=== PATIENT | female | born 1995 | race Caucasian/White ===

== ENCOUNTER 2018-04-08 13:53 | Observation (INO) | payer MEDICAID ==
[2018-04-08 14:56] VITALS: BP 127/79; PULSE 110
== END 2018-04-08 15:10 | disposition home or self-care (01) ==
LOC: MED SURG 13:53
PROVIDERS: ADMIT Family Medicine; ATTEND Family Medicine
DX: Z34.83 Encounter for supervision of other normal pregnancy, third trimester (principal)
CPT/HCPCS: 59025; G0378

== ENCOUNTER 2018-04-11 08:14 | Inpatient (IN) | payer MEDICAID ==
[2018-04-11] MEDS ORDERED: BRETHINE 1 MG/ML SQ PRN (18:45)
[2018-04-11 20:00] LABS: BASOPHIL % 0.2 % (0.0-0.4); Basophil (Absolute #) 0.02 (0-0.4); Eosinophil % 0.9 % (0.00-5.0); Granulocyte Absolute (ANC) 8.04 (1.4-6.9); Granulocytes % 69.4 % (36.0-66.0); Hematocrit 33.8 % (35-47); Lymphocyte (Absolute #) 2.65 (1.0-4.6); Lymphocytes % 22.9 % (24.0-44.0); Mean Corpuscular Hgb Concent. 32.5 g/dl (32-36); Mean Platelet Volume 9.4 fl (6-9.5); Monocyte (Absolute #) 0.76 (0.0-1.3); Monocytes % 6.6 % (0.0-12.0); Platelet Count 387 K/mm3 (150-450); Red Blood Count 4.07 M/mm3 (4.1-5.4); Red Cell Distribution Width 19.9 % (11.5-14.0); White Blood Count 11.6 K/mm3 (4.0-10.5)
[2018-04-11] MEDS ORDERED: Cervidil 10 MG VAG SCH (20:00)
[2018-04-11 23:08] LABS: Amphetamine,Urine NEGATIVE (NEGATIVE); Barbiturate,Urine NEGATIVE (NEGATIVE); Benzodiazepine,Urine NEGATIVE (NEGATIVE); Cocaine,Urine NEGATIVE (NEGATIVE); Methadone,Urine NEGATIVE (NEGATIVE); Opiate,Urine NEGATIVE (NEGATIVE); PCP,Urine NEGATIVE (NEGATIVE); THC,Urine NEGATIVE (NEGATIVE)
[2018-04-12] MEDS: TYLENOL 325 MG PO PRN (02:40)
[2018-04-12] MEDS ORDERED: XYLOCAINE 1% HCL 20 ML MDV IJ PRN (08:18)
[2018-04-12] MEDS ORDERED: Zofran 4 MG/2 ML VIAL IV PRN (08:18)
[2018-04-12] MEDS ORDERED: Ephedrine Sulfate 50 MG/ML IV PRN (08:18)
[2018-04-12] MEDS ORDERED: Lactated Ringers 1,000 ML IV ONE (08:18)
[2018-04-12] MEDS ORDERED: OB EPIDURAL NAROPIN/SUFENTANIL IN NACL EPIDURAL PRN (08:18)
[2018-04-12] MEDS ORDERED: BRETHINE 1 MG/ML SQ PRN (08:18)
[2018-04-12] MEDS ORDERED: Lactated Ringers 2,000 ML IV ONE (08:24)
[2018-04-12] MEDS ORDERED: PITOCIN 30 UNITS/ LR 500 ML 500 ML IV SCH ×2 (08:30)
[2018-04-12] MEDS ORDERED: Anucort-HC SUPPOSITORY PR PRN (10:34)
[2018-04-12] MEDS ORDERED: CORTISONE 1% CREAM TP PRN (10:34)
[2018-04-12] MEDS ORDERED: LANSINOH 40 GM TOP PRN (10:34)
[2018-04-12] MEDS ORDERED: NORCO 5/325 MG PO PRN (10:34)
[2018-04-12] MEDS ORDERED: Dulcolax 10 MG SUPP PR PRN (10:34)
[2018-04-12] MEDS ORDERED: Dermoplast Spray TP PRN (10:34)
[2018-04-12] MEDS ORDERED: Ambien 10 MG PO PRN (10:34)
[2018-04-12] MEDS ORDERED: TUCKS TP PRN (10:34)
[2018-04-12] MEDS ORDERED: Mylicon 80MG PO PRN (10:34)
[2018-04-12] MEDS ORDERED: NON-FORMULARY ITEM (Ranitidine Hcl [Zantac] 150 MG) PO PRN (10:51)
[2018-04-12] MEDS ORDERED: Pepcid 20 MG PO PRN (10:52)
[2018-04-12] MEDS ORDERED: Lactated Ringers 1,000 ML IV SCH (11:00)
[2018-04-12 11:45] LABS: ABO TYPING A; ANTIBODY SCREEN NEGATIVE (NEGATIVE); RH TYPING NEGATIVE
[2018-04-12] MEDS ORDERED: Rhogam Plus 300 MCG IM ONE (14:42)
[2018-04-12] MEDS: TYLENOL EXTRA STRENGTH 500 MG PO PRN (16:08)
[2018-04-12] MEDS: Colace 100 MG PO SCH (22:28)
[2018-04-13] MEDS: TYLENOL EXTRA STRENGTH 500 MG PO PRN (00:43)
[2018-04-13 05:42] LABS: BASOPHIL % 0.2 % (0.0-0.4); Basophil (Absolute #) 0.02 (0-0.4); Eosinophil % 1.1 % (0.00-5.0); Eosinophil (Absolute #) 0.14 (0-0.5); Granulocyte Absolute (ANC) 7.63 (1.4-6.9); Granulocytes % 61.7 % (36.0-66.0); Hematocrit 32.6 % (35-47); Hemoglobin 10.6 gm/dl (12.0-16.0); Lymphocyte (Absolute #) 3.73 (1.0-4.6); Lymphocytes % 30.1 % (24.0-44.0); Mean Cell Volume 83.6 fl (78-100); Mean Corpuscular Hgb Concent. 32.5 g/dl (32-36); Mean Platelet Volume 9.8 fl (6-9.5); Monocyte (Absolute #) 0.86 (0.0-1.3); Monocytes % 6.9 % (0.0-12.0); Platelet Count 367 K/mm3 (150-450); Red Cell Distribution Width 19.9 % (11.5-14.0); White Blood Count 12.4 K/mm3 (4.0-10.5)
[2018-04-13 05:45] LABS: Mean Corpuscular Hemoglobin 27.1 pg (26-32)
[2018-04-13] MEDS: TYLENOL 325 MG PO PRN ×2 (06:24→19:28)
[2018-04-13] MEDS: Colace 100 MG PO SCH (09:34)
[2018-04-13] MEDS: MOTRIN 400 MG PO PRN ×2 (09:34→15:40)
[2018-04-13] MEDS ORDERED: FERREX 150 PO SCH (10:00)
[2018-04-14] MEDS: Colace 100 MG PO SCH (01:32)
[2018-04-14] MEDS: MOTRIN 400 MG PO PRN (05:40)
[2018-04-14 06:03] VITALS: BP 123/66; PULSE 87
--- NOTE | 2018-04-14 08:29 | PCM.DS ---
Discharge Summary Date of Admission: 04/12/18 08:14 Admitting Physician: MEGAN RIVERA Consults: Consults on Case 04/12/18 10:35 Notify Physician ROUTINE Primary Care Provider: MEGAN RIVERA Allergies Allergies No Known Drug Allergies Allergy (Verified 09/03/15 19:29) Hospital Summary - Hospital Course Hospital Course: Pt was 22 yo who came for cervadil induction, term IOL. AROM with clear fluid at 0800 and delivery at 9:59. She had a 1 minute shoulder dystocia. Had relatively small amount of bleeding. She has felt very good since her delivery. Today she notes bleeding is light. - Vitals & Intake/Output Vital Signs: Vital Signs Temperature 98.3 F 04/14/18 05:30 Pulse Rate 87 04/14/18 05:30 Respiratory Rate 18 04/14/18 05:30 Blood Pressure 123/66 04/14/18 05:30 O2 Sat by Pulse Oximetry Intake & Output: Intake & Output 04/11/18 04/12/18 04/13/18 04/14/18 11:59 11:59 11:59 11:59 Intake Total 2180 1979 1200 Output Total 200 Balance 1979 1979 1199 Weight 112.037 kg - Lab Result Diagrams: 04/13/18 05:15 - Procedures and Test Procedures and Tests throughout Hospitalization: Therapy Orders & Screens 04/11/18 20:49 Smoking Cessation Education ONCE Comment: Diagnosis: Induction with cervidil Smoking Status: Current every day smoker How long have you smoked: 5 years Have you smoked in the past 12 months: Yes Approximately how many cigarettes per day: 1 ppd Do you dip or chew tobacco: No Discharge Exam General Appearance: no apparent distress, alert, obese Neurologic Exam: oriented x 3, cooperative, other (pat refl 2+) Skin Exam: normal color, warm, dry, No rash Eye Exam: eyes nml inspection Ears, Nose, Throat Exam: moist mucous membranes Respiratory Exam: normal breath sounds, lungs clear, No crackles/rales, No rhonchi, No wheezing Cardiovascular Exam: regular rate/rhythm, normal heart sounds, No murmur Gastrointestinal/Abdomen Exam: soft, normal bowel sounds, other (fundus firm under umbilicus), No tenderness, No distention Extremity Exam: No pedal edema, No swelling Final Diagnosis/Problem List - Final Discharge Diagnosis/Problem (1) Spontaneous vaginal delivery Current Visit: Yes Status: Acute Assessment & Plan: Doing great, home today with baby. (2) Anemia Current Visit: Yes Status: Acute Assessment & Plan: Mild. Iron x 1 month. - Discharge Disposition: Home, Self-Care Condition: Good Prescriptions: New Docusate Sodium 100 mg [Colace 100 MG] 100 mg PO BID PRN #60 capsule PRN Reason: Constipation Continue Ranitidine HCl [Zantac] 150 mg PO DAILY PRN PRN PRN Reason: heartburn Ferrous Sulfate [Iron] 1 tab PO DAILY #30 tablet Discontinued Doxylamine Succinate/Vit B6 [Diclegis Dr 10-10 mg Tablet] 1 tab PO BID Doxylamine Succinate/Vit B6 [Diclegis Dr 10-10 mg Tablet] 2 tab PO HS Follow up with: MEGAN RIVERA [Primary Care Provider] - 1 Week
== END 2018-04-14 11:15 | disposition home or self-care (01) | DRG 775 ==
LOC: OB 08:14 → OBSVTOIN 04-12 08:14
PROVIDERS: ADMIT Family Medicine; ATTEND Family Medicine
PROC: 10E0XZZ Delivery of Products of Conception, External Approach (ICD-10-PCS; principal; 2018-04-12)
DX: O80 Encounter for full-term uncomplicated delivery (principal); Z37.0 Single live birth; Z3A.40 40 weeks gestation of pregnancy; D64.9 Anemia, unspecified
CPT/HCPCS: 36415; 80307; 85025; 85461; 86850; 86900; 86901; G0378; J2590; J2790; J2795; A9270-GY

== ENCOUNTER 2018-08-29 18:15 | Emergency (ER) | payer MEDICAID ==
--- NOTE | 2018-08-29 18:32 | ERPHSYRPT ---
- History of Present Illness Time Seen by Provider: 08/29/18 18:20 Source: patient, family Exam Limitations: no limitations Physician History: 22 y/o right handed white female presents with laceration to left upper outer forearm. 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 pts tetanus is not utd. Timing/Duration: today Quality: painful (mildly) Location: extremities (left upper ) Possible Causes: other (cut on glass) Associated Symptoms: denies symptoms, No blisters, No change in skin texture, No difficulty breathing, No edema, No fever, No flushing, No headache, No hives , No jaundice, No numbness, No pallor, No paresthesia, No sore throat, No swelling/mass/lumps, No tingling Allergies/Adverse Reactions: No Known Drug Allergies Allergy (Verified 08/29/18 18:27) Home Medications: Bupropion HCl [Wellbutrin Xl] 150 mg PO DAILY 08/29/18 [History] Hx Tetanus, Diphtheria Vaccination/Date Given: No Hx Influenza Vaccination/Date Given: No Hx Pneumococcal Vaccination/Date Given: No - Review of Systems Constitutional: No Symptoms Eyes: No Symptoms Ears, Nose, & Throat: No Symptoms Respiratory: No Symptoms Cardiac: No Symptoms Abdominal/Gastrointestinal: No Symptoms Genitourinary Symptoms: No Symptoms Musculoskeletal: No Symptoms Skin: Other (laceration left upper forearm) Neurological: No Symptoms Psychological: No Symptoms Endocrine: No Symptoms Hematologic/Lymphatic: No Symptoms Immunological/Allergic: No Symptoms All Other Systems: Reviewed and Negative - Past Medical History Pertinent Past Medical History: Yes Neurological History: No Pertinent History ENT History: No Pertinent History Cardiac History: No Pertinent History Respiratory History: Asthma Endocrine Medical History: No Pertinent History Musculoskeletal History: No Pertinent History GI Medical History: No Pertinent History History: No Pertinent History Psycho-Social History: Depression Female Reproductive Disorders: No Pertinent History - Past Surgical History Past Surgical History: Yes Neuro Surgical History: No Pertinent History Cardiac: No Pertinent History Respiratory: No Pertinent History Gastrointestinal: No Pertinent History Genitourinary: No Pertinent History Musculoskeletal: Orthopedic Surgery Female Surgical History: No Pertinent History Other Surgical History: LEG INJURY - Social History Smoking Status: Current every day smoker How long have you smoked: 5 years Exposure to second hand smoke: Yes Drug Use: none Patient Lives Alone: No - Nursing Vital Signs Nursing Vital Signs: Initial Vital Signs Temperature 98.6 F 08/29/18 18:19 Pulse Rate 97 H 08/29/18 18:19 Blood Pressure 152/107 08/29/18 18:19 O2 Sat by Pulse Oximetry 97 08/29/18 18:19 Pain Scale Pain Intensity 5 - Physical Exam General Appearance: no apparent distress, alert, anxiety Eye Exam: PERRL/EOMI Ears, Nose, Throat Exam: normal ENT inspection Neck Exam: normal inspection Respiratory Exam: normal breath sounds, airway intact, No chest tenderness, No respiratory distress, No accessory muscle use, No rhonchi, No wheezing, No stridor Cardiovascular Exam: regular rate/rhythm Gastrointestinal/Abdomen Exam: soft, No tenderness, No guarding, No rebound Pelvic Exam: not done Rectal Exam: not done Back Exam: normal inspection, normal range of motion, No CVA tenderness, No vertebral tenderness Extremity Exam: normal inspection, normal range of motion, pelvis stable Neurologic Exam: alert, oriented x 3, cooperative, 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 no active bleeding or fb.) Lymphatic Exam: No adenopathy SpO2 Interpretation: normal Oxygen Delivery: Room Air Procedures - Laceration/Wound Repair Right Upper Proximal Dorsal Arm Wound Location: Left, lower arm Wound Length (cm): 2.5 Wound's Depth, Shape: superficial Wound Explored: clean Irrigated: No Hibiclens Prep: Yes Wound Repaired With: [place] (6) - Course Nursing assessment & vital signs reviewed: Yes Ordered Tests: Active Orders 24 hr Category Date Time Status Wound Care STAT Care 08/29/18 18:33 Active Medication Summary Discontinued Medications Generic Name Dose Route Start Last Admin Trade Name Freq PRN Reason Stop Dose Admin Bacitracin Zinc 0.9 gm 08/29/18 18:33 Baciguent Packet TP 08/29/18 18:34 STAT ONE Diphtheria/Tetanus/Acell Pertussis 0.5 ml 08/29/18 18:33 Adacel Vial IM 08/29/18 18:34 .ONCE ONE - Progress Progress: improved Counseled pt/family regarding: diagnosis, need for follow-up - Departure Time of Disposition: 18:42 Departure Disposition: Home Clinical Impression: Laceration of left forearm Condition: Stable Critical Care Time: No Referrals: MEGAN RIVERA [Primary Care Provider] - Additional Instructions: keep current dressing in place for 24 hours. after 24 hours, may wash with soap and water. after each wash apply antibiotic ointment to area and bandage. staple removal in 8 to 10 days. tylenol and ibuprofen for pain
[2018-08-29] MEDS ORDERED: Adacel Vial IM ONE ×2 (18:33→18:43)
[2018-08-29] MEDS ORDERED: BACIGUENT PACKET TP ONE (18:33)
[2018-08-29] MEDS ORDERED: BACIGUENT PACKET ONE (18:40)
[2018-08-29 18:52] VITALS: BP 134/94; PULSE 72; O2SAT 98
== END 2018-08-29 18:54 | disposition home or self-care (01) ==
LOC: ED 18:15
PROC: 0HQCXZZ Repair Left Upper Arm Skin, External Approach (ICD-10-PCS; principal; 2018-08-29)
DX: S51.812A Laceration without foreign body of left forearm, initial encounter (principal); W25.XXXA Contact with sharp glass, initial encounter; Y93.89 Activity, other specified; Y92.009 Unspecified place in unspecified non-institutional (private) residence as the place of occurrence of the external cause
CPT/HCPCS: 12001; 90471; 90715; 99283; A9270-GY

== ENCOUNTER 2021-07-26 10:22 | Emergency (ER) | payer OTHER ==
[2021-07-26] MEDS ORDERED: Sodium Chloride 0.9% 1000 ML 1,000 ML IV STA (11:15)
[2021-07-26] MEDS ORDERED: TORAdol 30 mg Injection IV ONE (11:16)
[2021-07-26] MEDS ORDERED: TORAdol 30 mg Injection ONE (11:24)
[2021-07-26] MEDS ORDERED: Sodium Chloride 0.9% 1000 ML 1,000 ML ONE (11:24)
--- NOTE | 2021-07-26 11:29 | ERPHSYRPT ---
- History of Present Illness Time Seen by Provider: 07/26/21 11:27 Source: patient Exam Limitations: no limitations Patient Subjective Stated Complaint: Pt states "I have had a pounding headache since . I had a fever of 103. I have been rotating tylenol and motrin and nothing is helping. I took an at home covid test yesterday and it was negative." Triage Nursing Assessment: PT presented alert and oriented X3, skin wpd Pt ambulates with an upright steady gait, able to speak in clear full sentences pt in no apparent respiratory distress. Pt holding her head and moaning. Physician History: Pt states "I have had a pounding headache since . I had a fever of 103. I have been rotating tylenol and motrin and nothing is helping. I took an at home covid test yesterday and it was negative." Patient was running fever 2 days ago. Patient denies any positive contact with Covid. Patient did a rapid test at home and which was negative. Patient denies any abdominal pain nausea vomiting diarrhea constipation chest pain or dizziness. Patient also denies any shortness of breath. Timing/Duration: day(s) (two days) Quality: throbbing Head Pain Location: frontal Severity of Pain-Max: severe Severity of Pain-Current: severe Recent Head Trauma: no recent headache/trauma Associated Symptoms: denies symptoms Allergies/Adverse Reactions: No Known Drug Allergies Allergy (Verified 08/29/18 18:27) Home Medications: Bupropion HCl [Wellbutrin Xl] 150 mg PO DAILY 08/29/18 [History] Diclofenac Sodium [Voltaren] 75 mg PO DAILY 07/26/21 [History] Doxepin HCl 10 mg PO DAILY 07/26/21 [History] Medroxyprogesterone Acetate 150 mg IM WEEKLY 07/26/21 [History] Quetiapine Fumarate [Seroquel] 50 mg PO 07/26/21 [History] Tolterodine Tartrate [Tolterodine Tartrate ER] 4 mg PO DAILY 07/26/21 [History] Venlafaxine HCl [Venlafaxine HCl ER] 150 mg PO DAILY 07/26/21 [History] Hx Tetanus, Diphtheria Vaccination/Date Given: Yes Hx Influenza Vaccination/Date Given: No Hx Pneumococcal Vaccination/Date Given: No Immunizations Up to Date: Yes Travel Risk - International Travel Have you traveled outside of the country in past 3 weeks: No - Coronavirus Screening Are you exhibiting any of the following symptoms?: No Close contact with a COVID-19 positive Pt in past 14-21 Days: No - Vaccine Status Have you recieved a Covid-19 vaccination: No - Review of Systems Constitutional: No Fever, No Chills Eyes: No Symptoms Ears, Nose, & Throat: No Symptoms Respiratory: No Cough, No Dyspnea Cardiac: No Chest Pain, No Edema, No Syncope Abdominal/Gastrointestinal: No Abdominal Pain, No Nausea, No Vomiting, No Diarrhea Genitourinary Symptoms: No Dysuria Musculoskeletal: No Back Pain, No Neck Pain Skin: No Rash Neurological: Headache, No Dizziness, No Focal Weakness, No Sensory Changes Psychological: No Symptoms Endocrine: No Symptoms All Other Systems: Reviewed and Negative - Past Medical History Pertinent Past Medical History: Yes Neurological History: No Pertinent History ENT History: No Pertinent History Cardiac History: No Pertinent History Respiratory History: Asthma, Bronchitis, Pneumonia Endocrine Medical History: No Pertinent History Musculoskeletal History: Fractures GI Medical History: No Pertinent History History: No Pertinent History Psycho-Social History: Depression Female Reproductive Disorders: No Pertinent History Other Medical History: Multiple toe fx, L femur fx at 1 years old - Past Surgical History Past Surgical History: Yes Neuro Surgical History: No Pertinent History Cardiac: No Pertinent History Respiratory: No Pertinent History Gastrointestinal: No Pertinent History Genitourinary: No Pertinent History Musculoskeletal: Orthopedic Surgery Female Surgical History: No Pertinent History Other Surgical History: LEG INJURY - Social History Smoking Status: Current every day smoker How long have you smoked: 0 Exposure to second hand smoke: Yes Drug Use: marijuana Patient Lives Alone: No - Female History Hx Last Menstrual Period: depo Hx Now: No - Nursing Vital Signs Nursing Vital Signs: Initial Vital Signs Temperature 97.8 F 07/26/21 10:48 Pulse Rate 118 H 07/26/21 10:48 Respiratory Rate 20 07/26/21 10:48 Blood Pressure 135/109 07/26/21 10:48 O2 Sat by Pulse Oximetry 98 07/26/21 10:48 Pain Scale Pain Intensity 5 - Physical Exam General Appearance: no apparent distress Eye Exam: PERRL/EOMI Ears, Nose, Throat Exam: normal ENT inspection, moist mucous membranes Neck Exam: normal inspection, supple, full range of motion, No meningismus Respiratory Exam: normal breath sounds, lungs clear Cardiovascular Exam: regular rate/rhythm, normal heart sounds Gastrointestinal/Abdominal Exam: soft, No tenderness, No distention Back Exam: normal inspection, normal range of motion Mental Status Exam: alert, oriented x 3, cooperative technician assistant Exam: normal speech, PERRL, No facial droop Coordination/Gait Exam: normal cerebellar function Motor/Sensory Exam: no motor deficit, no sensory deficit Skin Exam: normal color, warm, dry, No rash SpO2: 98 - Course Nursing assessment & vital signs reviewed: Yes - CT Exams Head CT Interpretation: Tele-radiologist Report (negative) Ordered Tests: Active Orders 24 hr Category Date Time Status Isolation, Initiate & Maintain STAT Care 07/26/21 11:14 Active HEAD WITHOUT CONTRAST [CT] Stat Exams 07/26/21 11:30 Taken CBC Stat Lab 07/26/21 11:30 Completed CMP Stat Lab 07/26/21 11:30 Completed Medication Summary Discontinued Medications Generic Name Dose Route Start Last Admin Trade Name Freq PRN Reason Stop Dose Admin Sodium Chloride 1,000 mls @ 999 mls/hr 07/26/21 11:15 07/26/21 12:28 Sodium Chloride 0.9% 1000 Ml IV 07/26/21 12:15 Infused .Q1H1M STA Infusion Sodium Chloride Confirm 07/26/21 11:24 Sodium Chloride 0.9% 1000 Ml Administered 07/26/21 11:25 Dose 1,000 mls @ ud .ROUTE .STK-MED ONE Ketorolac Tromethamine 30 mg 07/26/21 11:16 07/26/21 11:26 Toradol 30 Mg Injection IV 07/26/21 11:17 30 mg STAT ONE Administration Ketorolac Tromethamine Confirm 07/26/21 11:24 Toradol 30 Mg Injection Administered 07/26/21 11:25 Dose 30 mg .ROUTE .STK-MED ONE Potassium Bicarbonate 50 meq 07/26/21 12:24 07/26/21 12:52 K-Lyte 25 Meq PO 07/26/21 12:25 50 meq STAT ONE Administration Potassium Bicarbonate Confirm 07/26/21 12:50 K-Lyte 25 Meq Administered 07/26/21 12:51 Dose 50 meq .ROUTE .STK-MED ONE Lab/Rad Data: Laboratory Result Diagrams 07/26/21 11:30 07/26/21 11:30 Laboratory Results 07/26/21 07/26/21 Range/Units 11:30 11:30 WBC 11.9 H (4.0-10.5) K/mm3 RBC 4.27 (4.1-5.4) M/mm3 Hgb 12.8 (12.0-16.0) gm/dl Hct 38.6 (35-47) % MCV 90.4 (78-100) fl MCH 30.0 (26-32) pg MCHC 33.2 (32-36) g/dl RDW 13.2 (11.5-14.0) % Plt Count 217 (150-450) K/mm3 MPV 10.7 (7.5-11.0) fl Sodium 134 L (137-145) mmol/L Potassium 3.2 L (3.5-5.1) mmol/L Chloride 100 (98-107) mmol/L Carbon Dioxide 21 L (22-30) mmol/L Anion Gap 15.6 H (5-15) MEQ/L BUN 5 L (7-17) mg/dL Creatinine 0.74 (0.52-1.04) mg/dL Estimated GFR > 60.0 ML/MIN Glucose 141 H (74-106) mg/dL Calcium 9.5 (8.4-10.2) mg/dL Total Bilirubin 0.90 (0.2-1.3) mg/dL AST 24 (14-36) U/L ALT 35 (0-35) U/L Alkaline Phosphatase 103 (38-126) U/L Serum Total Protein 7.9 (6.3-8.2) g/dL Albumin 4.1 (3.5-5.0) g/dL - Progress Progress: improved Air Movement: good Blood Culture(s) Obtained: No Antibiotics given: No Counseled pt/family regarding: lab results, diagnosis, need for follow-up, rad results - Departure Departure Disposition: Home Clinical Impression: COVID-19 determined by clinical diagnostic criteria Headache Qualifiers: Headache type: tension-type Headache chronicity pattern: acute headache Intractability: not intractable Qualified Code(s): G44.209 - Tension-type headache, unspecified, not intractable Condition: Stable Critical Care Time: Yes Critical Care Time(excluding separately billable procedures): Critical 30-74 mins Referrals: MEGAN VENTURA [Primary Care Provider] - Instructions: Headache, Adult (DC), Coronavirus Disease 2019 (COVID-19) (DC) Additional Instructions: Discharge/Care Plan MANDIE VILLATORO was seen on 07/26/21 in the Emergency Room. The patient was counseled regarding Diagnosis,Lab results, Imaging studies, need for follow up and when to return to the Emergency Room. Prescriptions given: Discharge Note I have spoken with the patient and/or caregivers. I have explained the patient's condition, diagnosis and treatment plan based on the information available to me at this time. I have answered the patient's and/or caregiver's questions and addressed any concerns. The patient and/or caregivers have as good understanding of the patient's diagnosis, condition and treatment plan as can be expected at this point. The vital signs have been stable. The patient's condition is stable and appropriate for discharge from the emergency department. The patient will pursue further outpatient evaluation with the primary care physician or other designated or consulting physician as outlined in the discharge instructions. The patient and/or caregivers are agreeable to this plan of care and follow-up instructions have been explained in detail. The patient and/or caregivers have received these instruction. The patient/and or caregivers are aware that any significant change in condition or worsening of symptoms should prompt an immediate return to this or the closest emergency department or call 911. MANDIE VILLATORO was seen on 07/26/21 n the Emergency Room. At that time you were treated for an emergent condition, during your visit Laboratory, Radiology and/or other procedures may have been ordered. It is very important that you follow-up with your Primary Care Physician MEGAN VENTURA within the next 24-48 hours to review your Emergency Room visit and the final results of testing that was ordered. Some test results such as Urine Cultures, Blood Cultures, and other cultures if ordered will not be finalized for 24-48 hours. If you do not have a Primary Care Provider please call the medical records department at [phone] ext [phone] to obtain a copy of your results or you may sign into our patient portal to obtain these results by visiting us @ [email or web address] and completing the following steps: 1. Click on the Patient Portal link 2. Click the Patient Self Enrollment Link to complete the enrollment form and entering your 3. Once the enrollment form is completed you will receive an email with a tempo rary ID and password at the email address you provided. 4. Next choose a user name and password. Your user name must be at least 4 characters long and your password must be at least 4 characters long. 5. Choose a security question from the list and provide your answer to the question. If you already have signed into the Health Portal you may access your Health Care Information 07/06 by the following steps: 1. Login to our website @ [email or web address] 2. Enter your original user name and password. FAQS The [facility] Health Portal is an online tool that contains your Lab Results, Radiology Reports, Visit History, Discharge Instructions and Health Summary Lab and Radiology Results will not be available for 72 hours on the portal. The Portal is a secure site, passwords are encryted and URLs are re-written so they cannot be copied and pasted. You and authorized family members are the only ones who can access your Portal. Also there is a timeout feature that protects your information if you leave the Portal page open. If you have technical difficulty please use the Contact Us link on the page this will allow you to submit any questions you have regarding the Portal or you may contact the Medical Record Department at [phone] ext [phone].
[2021-07-26 11:48] LABS: Hematocrit 38.6 % (35-47); Hemoglobin 12.8 gm/dl (12.0-16.0); Mean Cell Volume 90.4 fl (78-100); Mean Corpuscular Hgb Concent. 33.2 g/dl (32-36); Mean Platelet Volume 10.7 fl (7.5-11.0); Platelet Count 217 K/mm3 (150-450); Red Blood Count 4.27 M/mm3 (4.1-5.4); Red Cell Distribution Width 13.2 % (11.5-14.0); White Blood Count 11.9 K/mm3 (4.0-10.5)
[2021-07-26 11:55] LABS: ALBUMIN 4.1 g/dL (3.5-5.0); ALKALINE PHOSPHATASE 103 U/L (38-126); ANION GAP 15.6 MEQ/L (5-15); BLOOD UREA NITROGEN 5 mg/dL (7-17); CHLORIDE 100 mmol/L (98-107); Calcium 9.5 mg/dL (8.4-10.2); Carbon Dioxide 21 mmol/L (22-30); Creatinine 1 0.74 mg/dL (0.52-1.04); EST GLOMERULAR FILTRATION RATE > 60.0 ML/MIN; Glucose 141 mg/dL (74-106); Potassium 3.2 mmol/L (3.5-5.1); SGOT/AST 24 U/L (14-36); SGPT/ALT 35 U/L (0-35); SODIUM 134 mmol/L (137-145); Total Protein 7.9 g/dL (6.3-8.2)
[2021-07-26] MEDS ORDERED: K-LYTE 25 MEQ PO ONE (12:24)
[2021-07-26] MEDS ORDERED: K-LYTE 25 MEQ ONE (12:50)
[2021-07-26 13:23] VITALS: O2SAT 98
[2021-07-26 13:48] VITALS: BP 132/87; PULSE 96
--- NOTE | 2021-07-26 20:30 | XRAY ---
Indication: Severe frontal headache. Multiple contiguous axial images obtained through the head without contrast. Comparison: None Normal appearing brain parenchyma, ventricles, and bony calvarium. Visualized paranasal sinuses and mastoid air cells are clear. Impression: Normal CT head without contrast exam. Comment: Preliminary interpretation made by [facility]. No critical discrepancy.
== END 2021-07-26 13:47 | disposition home or self-care (01) ==
LOC: ED 10:22
DX: G44.209 Tension-type headache, unspecified, not intractable (principal); Z79.899 Other long term (current) drug therapy
CPT/HCPCS: 36000; 36415; 70450; 80053; 85027; 96360; 96374; 99284; 99291; U0003; J1885; A9270-GY

== ENCOUNTER 2025-09-07 11:24 | Emergency (ER) | payer MEDICAID ==
[2025-09-07 11:41] VITALS: TEMP 96.7
[2025-09-07 11:48] LABS: BASOPHIL % 0.3 % (0.1-1.2); Basophil (Absolute #) 0.03 x10^3/uL (0.01-0.08); Eosinophil (Absolute #) 0.17 x10^3/uL (0.04-0.36); Hematocrit 43.7 % (34.1-44.9); Hemoglobin 14.8 g/dL (11.2-15.7); IMMATURE GRAN # 0.04 x10^3u/L (0.001-0.031); IMMATURE GRAN % 0.4 % (0.001-0.429); Lymphocyte (Absolute #) 0.75 x10^3/uL (1.18-3.74); Mean Corpuscular Hemoglobin 31.6 pg (25.6-32.2); Mean Corpuscular Hgb Concent. 33.9 g/dL (32.2-35.5); Monocyte (Absolute #) 0.40 x10^3/uL (0.24-0.86); NUCLEATED RBC # 0.00 x10^3u/L (0.00-0.012); NUCLEATED RBC % 0.0 % (0.00-0.2); Platelet Count 201 x10^3/uL (182-369); Red Blood Count 4.69 x10^6/uL (3.93-5.22); White Blood Count 9.2 x10^3/uL (3.98-10.04)
[2025-09-07 12:02] LABS: HCG SERUM TEST NEGATIVE (NEGATIVE)
[2025-09-07 12:03] LABS: Calcium 9.5 mg/dL (8.4-10.2); Carbon Dioxide 24.0 mmol/L (22-30); Creatinine 1 0.89 mg/dL (0.52-1.04); EST GLOMERULAR FILTRATION RATE 88.8 ML/MIN; Glucose 101.0 mg/dL (74-106); Potassium 3.8 mmol/L (3.5-5.1); SGOT/AST 21.0 U/L (14-36); SGPT/ALT 17.0 U/L (0-35); Total Protein 7.7 g/dL (6.3-8.2)
--- NOTE | 2025-09-07 12:14 | ERPHSYRPT ---
- History of Present Illness Time Seen by Provider: 09/07/25 11:40 Source: patient, EMS, old records Exam Limitations: clinical condition Patient Subjective Stated Complaint: pt went to bed at approx 0100 and was fine and when she woke at 1000 she wasn't able to walk and had right sided weakness Triage Nursing Assessment: Pt brought by EMS to the ER, hyperensive in the left arm but normal in the right, hypersensitivity to the right arm, weak pulses, garbled speech and unable to understand, right sided weakness with facial droop, skin n/w/d, denies pain, unable to lift right arm but if lifted it drifts down, can lift right leg and then drift, denies N&V, lethargic Physician History: This is a 29-year-old white female patient brought to the emergency department by the paramedics with the concern of CVA symptoms. Patient went to bed approximately 1 AM and she was normal neurologically. She woke up at 10 AM this morning (9 hours later) and she had weakness on the right side, right facial droop and garbled/incomprehensible speech. The paramedics arrived and there was a disparity between the blood pressure on the right (normal range) and elevated blood pressure in the left upper extremity. Patient has a history of psychiatric issues, anxiety, gastroesophageal reflux disease and hypertension. Timing/Duration: today Severity: moderate Character of Deficits: new weakness, impaired speech, RLE, RUE Deficits: decrease ability to walk, weak (Right sided) Baseline/Normal Cognition: alert oriented x 3 Current Cognition: alert but confused Baseline Gait: walks w/o assistance Associated Symptoms: weakness (Right side weakness), slurred speech, trouble walking (Right side weakness), No chest pain, No headache Allergies/Adverse Reactions: No Known Drug Allergies Allergy (Verified 09/07/25 11:36) Home Medications: Venlafaxine HCl [Venlafaxine HCl ER] 225 mg PO DAILY 07/26/21 [History] Diclofenac Sodium [Diclofenac Sodium ER] 75 mg PO BID 09/07/25 [History] Ergocalciferol (Vitamin D2) [Vitamin D2] 50,000 unit PO Q7D 09/07/25 [History] Lamotrigine 100 mg [lamICTAL 100MG TABLET] 100 mg PO DAILY 09/07/25 [History] Loratadine 10 mg [Claritin 10 mg] 10 mg PO DAILY 09/07/25 [History] Metoprolol Succinate 25 mg Xl* [Toprol-Xl 25MG Tablets] 25 mg PO DAILY 09/07/25 [History] Norethindrone 0.25 mg PO DAILY 09/07/25 [History] PANTOPRAZOLE 40 mg Tablet [Protonix 40MG Tablet] 40 mg PO QAM 09/07/25 [History] Hx Tetanus, Diphtheria Vaccination/Date Given: Yes Hx Influenza Vaccination/Date Given: No Hx Pneumococcal Vaccination/Date Given: No Travel Risk - International Travel Have you traveled outside of the country in past 3 weeks: No - Emerging Infectious Disease Are you exhibiting symptoms associated with any current EIDs: No - Review of Systems Constitutional: Weakness (Right side weakness) Eyes: No Symptoms Ears, Nose, & Throat: No Symptoms Respiratory: No Symptoms Cardiac: No Symptoms Abdominal/Gastrointestinal: No Symptoms Genitourinary Symptoms: No Symptoms Musculoskeletal: No Symptoms Skin: No Symptoms Neurological: Gait Changes (Right-sided weakness), Speech Changes, Other (Tongue deviation to the right) Psychological: No Symptoms Endocrine: No Symptoms Hematologic/Lymphatic: No Symptoms Immunological/Allergic: No Symptoms All Other Systems: Unable due to condition - Past Medical History Pertinent Past Medical History: Yes Neurological History: Migraines ENT History: No Pertinent History Cardiac History: No Pertinent History Respiratory History: Asthma Endocrine Medical History: No Pertinent History Musculoskeletal History: Other GI Medical History: No Pertinent History History: No Pertinent History Psycho-Social History: Depression Female Reproductive Disorders: No Pertinent History Other Medical History: LBP - Past Surgical History Past Surgical History: Yes Neuro Surgical History: No Pertinent History Cardiac: No Pertinent History Respiratory: No Pertinent History Gastrointestinal: No Pertinent History Genitourinary: No Pertinent History Musculoskeletal: Orthopedic Surgery Female Surgical History: No Pertinent History Other Surgical History: LEG INJURY - Female History Hx Last Menstrual Period: 08/17/14 Hx Now: No - Social History Smoking Status: Current every day smoker How long have you smoked: 0 Exposure to second hand smoke: Yes Drug Use: marijuana - Social Determinants of Health Will the patient participate in the screening: Unable to obtain - Nursing Vital Signs Nursing Vital Signs: Initial Vital Signs O2 Sat by Pulse Oximetry 100 09/07/25 11:38 Pain Scale Pain Intensity 0 - Salix Coma Scale Best Eye Response (Salix): (3) open to voice Best Verbal Response (Hill): (4) confused conversation Best Motor Response (Hill): (5) localizes to pain Salix Total: 12 - Physical Exam General Appearance: lethargy, obese Eye Exam: bilateral eye: normal inspection, PERRL, EOMI Ears, Nose, Throat Exam: normal ENT inspection, moist mucous membranes Neck Exam: normal inspection, non-tender, supple, full range of motion Respiratory: normal breath sounds, lungs clear, airway intact, No chest tenderness, No respiratory distress Cardiovascular: regular rate/rhythm, normal heart sounds, normal peripheral pulses Gastrointestinal: soft, normal bowel sounds, No tenderness Pelvic Exam: not done Rectal Exam: not done Back Exam: normal inspection, normal range of motion, No CVA tenderness Extremity Exam: normal inspection, normal range of motion, pelvis stable Mental Status: intoxicated appearance, 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 QTc is 392) Ordered Tests: Active Orders 24 hr Category Date Time Status Executive Sales Assistant STAT Care 09/07/25 11:33 Active Cath for Specimen-Straight STAT Care 09/07/25 11:34 Active EKG-ER Only STAT Care 09/07/25 11:32 Active IV Insertion STAT Care 09/07/25 11:32 Active NPO (ED) STAT Care 09/07/25 11:32 Active POCT Glucose Check STAT Care 09/07/25 11:32 Active Pulse Oximetry (ED) STAT Care 09/07/25 11:[address] ANGIOGRAPHY NECK [CT] Stat Exams 09/07/25 12:31 Completed CTA HEAD W AND/OR WO CONTRAST [CT] Stat Exams 09/07/25 12:32 Completed HEAD WITHOUT CONTRAST [CT] Stat Exams 09/07/25 11:25 Completed MRI BRAIN W/O CONTRAST [MRI] Stat Exams 09/07/25 12:34 Completed CBC W DIFF Stat Lab 09/07/25 11:45 Completed CMP Stat Lab 09/07/25 11:45 Completed CULTURE,URINE Stat Lab 09/07/25 12:23 Received HCG QUALITATIVE, SERUM Stat Lab 09/07/25 11:45 Completed UA W/RFX UR CULTURE Stat Lab 09/07/25 12:23 Completed Urine Triage Profile Stat Lab 09/07/25 12:23 Completed Medication Summary Discontinued Medications Generic Name Dose Route Start Last Admin Trade Name Ledy PRN Reason Stop Dose Admin Labetalol HCl 10 mg 09/07/25 14:06 09/07/25 14:11 Labetalol Hcl 20 Mg/4 Ml Disp.Syringe IV 09/07/25 14:07 10 mg STAT ONE Administration Labetalol HCl Confirm 09/07/25 14:10 Labetalol Hcl 20 Mg/4 Ml Disp.Syringe Administered 09/07/25 14:11 Dose 20 mg IV .FoxyTunes ONE Lab/Rad Data: Laboratory Result Diagrams 09/07/25 11:45 09/07/25 11:45 Laboratory Results 09/07/25 09/07/25 09/07/25 Range/Units 12:23 12:23 11:45 WBC (3.98-10.04) x10^3/uL RBC (3.93-5.22) x10^6/uL Hgb (11.2-15.7) g/dL Hct (34.1-44.9) % MCV (79.4-94.8) fL MCH (25.6-32.2) pg MCHC (32.2-35.5) g/dL RDW (11.7-14.4) % Plt Count (182-369) x10^3/uL MPV (9.4-12.3) fL Gran % (34.0-71.1) % Immature Gran % (Auto) (0.001-0.429) % Nucleat RBC Rel Count (0.00-0.2) % Eos # (Auto) (0.04-0.36) x10^3/uL Immature Gran # (Auto) (0.001-0.031) x10^3u/L Absolute Lymphs (auto) (1.18-3.74) x10^3/uL Absolute Monos (auto) (0.24-0.86) x10^3/uL Absolute Nucleated RBC (0.00-0.012) x10^3u/L Lymphocytes % (19.3-51.7) % Monocytes % (4.7-12.5) % Eosinophils % (0.7-5.8) % Basophils % (0.1-1.2) % Absolute Granulocytes (1.56-6.13) x10^3/uL Basophils # (0.01-0.08) x10^3/uL Sodium (135-145) mmol/L Potassium (3.5-5.1) mmol/L Chloride (98-107) mmol/L Carbon Dioxide (22-30) mmol/L Anion Gap (5-15) MEQ/L BUN (7-17) mg/dL Creatinine (0.52-1.04) mg/dL Estimated GFR ML/MIN Glucose (74-106) mg/dL Calcium (8.4-10.2) mg/dL Total Bilirubin (0.2-1.3) mg/dL AST (14-36) U/L ALT (0-35) U/L Alkaline Phosphatase (38-126) U/L Serum Total Protein (6.3-8.2) g/dL Albumin (3.5-5.0) g/dL Serum HCG, Qual NEGATIVE (NEGATIVE) Urine Color Yellow (Yellow) Urine Appearance Clear (Clear) Urine pH 7.0 (4.6-8.0) Ur Specific Amity 1.015 (1.005-1.030) Urine Protein Negative (Negative) Urine Glucose (UA) Negative (Negative) mg/dL Urine Ketones Negative (Negative) Urine Blood Negative (Negative) Urine Nitrite Negative (Negative) Urine Bilirubin Negative (Negative) Urine Urobilinogen 1.0 A (0.2) mg/dL Ur Leukocyte Esterase Negative (Negative) U Hyaline Cast (Auto) NONE SEEN (0-2) /LPF Urine Microscopic RBC 0-2 (0-5) /HPF Urine Microscopic WBC 0-2 (0-5) /HPF Ur Epithelial Cells Rare (None Seen) /HPF Urine Bacteria None Seen (None Seen) /HPF Urine Culture Reflexed ORDERED SEPARATELY (NO) Urine Opiates Level NEGATIVE (NEGATIVE) Ur Methadone NEGATIVE (NEGATIVE) Urine Barbiturates NEGATIVE (NEGATIVE) Ur Phencyclidine (PCP) NEGATIVE (NEGATIVE) Urine Amphetamine NEGATIVE (NEGATIVE) U Benzodiazepine Level NEGATIVE (NEGATIVE) Urine Cocaine NEGATIVE (NEGATIVE) Urine Marijuana (THC) POSITIVE A (NEGATIVE) 09/07/25 09/07/25 Range/Units 11:45 11:45 WBC 9.2 (3.98-10.04) x10^3/uL RBC 4.69 (3.93-5.22) x10^6/uL Hgb 14.8 (11.2-15.7) g/dL Hct 43.7 (34.1-44.9) % MCV 93.2 (79.4-94.8) fL MCH 31.6 (25.6-32.2) pg MCHC 33.9 (32.2-35.5) g/dL RDW 12.0 (11.7-14.4) % Plt Count 201 (182-369) x10^3/uL MPV 10.3 (9.4-12.3) fL Gran % 85.1 H (34.0-71.1) % Immature Gran % (Auto) 0.4 (0.001-0.429) % Nucleat RBC Rel Count 0.0 (0.00-0.2) % Eos # (Auto) 0.17 (0.04-0.36) x10^3/uL Immature Gran # (Auto) 0.04 H (0.001-0.031) x10^3u/L Absolute Lymphs (auto) 0.75 L (1.18-3.74) x10^3/uL Absolute Monos (auto) 0.40 (0.24-0.86) x10^3/uL Absolute Nucleated RBC 0.00 (0.00-0.012) x10^3u/L Lymphocytes % 8.1 L (19.3-51.7) % Monocytes % 4.3 L (4.7-12.5) % Eosinophils % 1.8 (0.7-5.8) % Basophils % 0.3 (0.1-1.2) % Absolute Granulocytes 7.85 H (1.56-6.13) x10^3/uL Basophils # 0.03 (0.01-0.08) x10^3/uL Sodium 138 (135-145) mmol/L Potassium 3.8 (3.5-5.1) mmol/L Chloride 103 (98-107) mmol/L Carbon Dioxide 24 (22-30) mmol/L Anion Gap 15.3 H (5-15) MEQ/L BUN 9 (7-17) mg/dL Creatinine 0.89 (0.52-1.04) mg/dL Estimated GFR 88.8 ML/MIN Glucose 101 (74-106) mg/dL Calcium 9.5 (8.4-10.2) mg/dL Total Bilirubin 0.50 (0.2-1.3) mg/dL AST 21 (14-36) U/L ALT 17 (0-35) U/L Alkaline Phosphatase 70 (38-126) U/L Serum Total Protein 7.7 (6.3-8.2) g/dL Albumin 4.4 (3.5-5.0) g/dL Serum HCG, Qual (NEGATIVE) Urine Color (Yellow) Urine Appearance (Clear) Urine pH (4.6-8.0) Ur Specific [place] (1.005-1.030) Urine Protein (Negative) Urine Glucose (UA) (Negative) mg/dL Urine Ketones (Negative) Urine Blood (Negative) Urine Nitrite (Negative) Urine Bilirubin (Negative) Urine Urobilinogen (0.2) mg/dL Ur Leukocyte Esterase (Negative) U Hyaline Cast (Auto) (0-2) /LPF Urine Microscopic RBC (0-5) /HPF Urine Microscopic WBC (0-5) /HPF Ur Epithelial Cells (None Seen) /HPF Urine Bacteria (None Seen) /HPF Urine Culture Reflexed (NO) Urine Opiates Level (NEGATIVE) Ur Methadone (NEGATIVE) Urine Barbiturates (NEGATIVE) Ur Phencyclidine (PCP) (NEGATIVE) Urine Amphetamine (NEGATIVE) U Benzodiazepine Level (NEGATIVE) Urine Cocaine (NEGATIVE) Urine Marijuana (THC) (NEGATIVE) - Progress Progress: unchanged, re-examined Progress Note: 09/07/25 12:17 My medical decision making and the assignment of high complexity of this patient's medical issue today is based on review of the patient's past medical history, review the patient's medication list, reviewed patient drug allergy list, history present illness and physical findings on examination. The workup in this patient includes stat [id number] blood glucose, urinalysis, urine drug triage, CBC, CMP, twelve-lead EKG, stat CT scan of the head without contrast and obtaining teleneuro consultation. Differential diagnosis includes but is not limited to head injury, acute intracranial abnormality, electrolyte abnormalities, blood sugar abnormalities, arrhythmia, psychiatric issues 09/07/25 13:59 I interpreted the patient's laboratory data results. Based on the laboratory data results there are no acute, emergent medical issues. I spoke with Dr. Hernandez, our teleneurologist who evaluated this patient and made recommendations on this patient. He reviewed and interpreted the CT scan without contrast and did not feel that there was an acute process present. He did not recommend providing thrombolytics to this patient secondary to her being out of the acceptable timeframe for receipt. He recommended performing MRI of the brain, CTA of head and neck, urine toxicology, hemoglobin A1c, lipid panel, TSH and free T4. 09/07/25 14:14 The following radiographic studies were interpreted by the radiologist and I reviewed the impression. I also spoke with radiologist Dr. Guerrier who interpreted the following radiographic studies: The CT scan of the head without contrast shows a new, remote lacunar infarct right internal capsule. Comparison study 10/06/2024. CT scan angiography of the neck is a normal CT a of the neck with contrast. MRI of the brain without contrast shows acute ischemia left centrum semiovale and left basal ganglia. No acute hemorrhage or mass effect. CTA of the head with contrast shows attenuation distal left M2/M3 branches corresponding to acute ischemia seen on same-day MRI of the brain. Remaining CTA of the head is negative. 09/07/25 14:[address] Fredrick Vera, neurology, at [facility]. Geetha was the individual I spoke at the transfer center. He reviewed and was reviewing at the time of our conversation, the radiograph studies that were sent to him via the cloud. He accepts the patient in transfer emergency department to emergency department. Patient's blood pressure did respond to the labetalol but has increased again and therefore we will start a nicardipine drip. I did speak with the patient. She voiced an understanding of what I was telling her. We will make arrangements for immediate transport to [facility]. Counseled pt/family regarding: lab results, diagnosis, rad results Medical Desision Making - Independent Historian Additional History obtained from: Follow Up Clerk/EMT - Discussion of managment Care discussed with:: specialist (Dr. Fredrick [facility]) Reviewed:: Test results, Need for additional workup - Diagnostic Testing Diagnostic test were ordered, analyzed, and reviewed by me: Yes Radiological Interpretation: Reviewed by me, Teleradiologist Report - Risk of complications The pt has a high risk of morbidity or mortality based on: Decision regarding hospitilization or escalation of hosp level of care - Departure Departure Disposition: Transfer Clinical Impression: Acute cerebrovascular accident (CVA) due to ischemia Condition: Serious Critical Care Time: Yes Critical Care Time(excluding separately billable procedures): Critical 30-74 mins (70) Referrals: MEGAN VENTURA [Primary Care Provider, [facility]] - Follow up/PCP as directed
--- NOTE | 2025-09-07 12:28 | PCM.CONS ---
History of Present Illness - Neuro Consultation ED Arrival Date & Time: 09/07/25 11:24 Providers: Attending Provider: ED Provider: Consulting Provider: GRANT DIAZ MD cc:: The requesting physician will be sent a copy of the consult. - History of Present Illness HPI: Lavonne Swartz is a 29 year old female who woke up with right sided weakness, right facial droop, dysarthria. She went to sleep normal at 0100 and woke up at 1000. She is restless in bed and unable to give a detailed history. This is the extent of the patients complaints at this time. Per ED note: Patient Subjective Stated Complaint: pt went to bed at approx 0100 and was fine and when she woke at 1000 she wasn't able to walk and had right sided weakness Triage Nursing Assessment: Pt brought by EMS to the ER, hypertensive in the left arm but normal in the right, hypersensitivity to the right arm, weak pulses, garbled speech and unable to understand, right sided weakness with facial droop, skin n/w/d, denies pain, unable to lift right arm but if lifted it drifts down, can lift right leg and then drift, denies N&V, lethargic Physician History: This is a 29-year-old white female patient brought to the emergency department by the paramedics with the concern of CVA symptoms. Patient went to bed approximately 1 AM and she was normal neurologically. She woke up at 10 AM this morning (9 hours later) and she had weakness on the right side, right facial droop and garbled/incomprehensible speech. The paramedics arrived and there was a disparity between the blood pressure on the right (normal range) and elevated blood pressure in the left upper extremity. Patient has a history of psychiatric issues, anxiety, gastroesophageal reflux disease and hypertension. LKW: 0100 NIHSS: 9 Is patient an IV thrombolytics candidate: no, out of the window Review of Systems - Review of Systems Review of Systems (Narrative): Pertinent positive and negative findings as per HPI. All other systems negative. - Past Medical History Past Medical History: Yes Neurological History: Migraines ENT History: No Pertinent History Cardiac History: No Pertinent History Respiratory History: Asthma Endocrine Medical History: No Pertinent History Musculoskelatal History: Other GI Medical History: No Pertinent History History: No Pertinent History Pyscho-Social History: Depression Reproductive Disorders: No Pertinent History Comment: LBP - Female History Hx Last Menstrual Period: 08/17/14 Are you now?: No - Past Surgical History Past Surgical History: Yes Neuro Surgical History: No Pertinent History Cardiac History: No Pertinent History Respiratory Surgery: No Pertinent History GI Surgical History: No Pertinent History Genitourinary Surgical Hx: No Pertinent History Musculskeletal Surgical Hx: Orthopedic Surgery Female Surgical History: No Pertinent History Other Surgical History: LEG INJURY - Social History Smoking Status: Current every day smoker How long have you smoked: 0 Exposure to second hand smoke: Yes Alcohol: Rarely Drug Use: marijuana - Social Determinants of Health Will the patient participate in the screening: Unable to obtain Physical Exam - Vital Signs Vital Signs: Vital Signs - 24 hr 09/07/25 09/07/25 09/07/25 11:38 11:39 12:18 Temperature 96.7 F Pulse Rate 59 L Respiratory 29 H Rate Blood Pressure 191/124 [Left Arm] O2 Sat by Pulse 100 100 100 Oximetry - Physical Exam Tele-Neuro Physical Exam (Narrative): Gen: Well developed, well nourished. Restless and agitated MS: Awake. Mild dysarthria CV: Regular rate. No edema. labor relations consultant: EOMI. +blink. Unable to visualize fundi. Mild right facial droop Hearing intact. Trapezii strong. Tongue midline. Motor: RUE falls to bed. RLE drift. Normal tone and bulk. Sens: Decreased sensation on the right MSR: Unable to assess through telemedicine, no clonus noted. Mvmt: No tremors noted. ALESSANDRO/FTN intact. Gait: Deferred. NIHSS Mental status (0-3): 1 Month/age (0-2): 1 Commands (0-2): 0 Best Gaze (0-2): 0 Visual Duncan (0-3):0 Facial weakness (0-3): 1 (right facial droop) LUE (0-4): 0 RUE (0-4): 3 LLE (0-4): 0 RLE (0-4): 1 Ataxia (0-2): 0 Sensation (0-2): 1 Aphasia (0-3): 1 Dysarthria (0-2): 1 Extinction (0-2): 0 NIHSS Total: 9 - NIHSS Stroke Scale Date Completed: 09/07/25 Time Stroke Scale Completed: 11:51 Results - Labs Lab/Micro Results: Lab Results-Last 24 Hours 09/07/25 09/07/25 Range/Units 11:45 11:45 Sodium 138 (135-145) mmol/L Potassium 3.8 (3.5-5.1) mmol/L Chloride 103 (98-107) mmol/L Carbon Dioxide 24 (22-30) mmol/L Anion Gap 15.3 H (5-15) MEQ/L BUN 9 (7-17) mg/dL Creatinine 0.89 (0.52-1.04) mg/dL Estimated GFR 88.8 ML/MIN Glucose 101 (74-106) mg/dL Calcium 9.5 (8.4-10.2) mg/dL Total Bilirubin 0.50 (0.2-1.3) mg/dL AST 21 (14-36) U/L ALT 17 (0-35) U/L Alkaline Phosphatase 70 (38-126) U/L Serum Total Protein 7.7 (6.3-8.2) g/dL Albumin 4.4 (3.5-5.0) g/dL Serum HCG, Qual NEGATIVE (NEGATIVE) Accuchecks Date 09/07/25 Time 11:37 - Radiology Orders Radiology Orders: Radiology Procedures Category Date Time Status HEAD WITHOUT CONTRAST [CT] Stat Exams 09/07/25 11:25 Taken CTH: no acute intracranial findings on my review Impressions & Recommendations - ED Arrival Time ED Arrival Date & Time: ED Arrival Date and Time 09/07/25 11:24 Last known well time: 0100 - Recommendations Recommendations: - Assessment & Plan - Encounter Encounter: "The entirety of this encounter was performed via Telemedicine using audio and visual " Lavonne Swartz is a 29 year old female who woke up with right sided weakness, right facial droop, dysarthria. She went to sleep normal at 0100 and woke up at 1000. She is restless in bed and unable to give a detailed history. Out of window for thrombolytics. Recommend CTA to assess for LVO. Differential includes acute ischemic stroke and FND. 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 Chen Thank you for allowing us to participate in this patients care. Please call [facility] with questions, concerns, or change in patients neurological status. This consult was performed via secure telemedicine 2 way audio/visual platform, patient consent obtained. Acute Stroke consult time:1209 Neuro arrival on screen time: 1209
--- NOTE | 2025-09-07 12:33 | XRAY ---
Indication: Weakness. Multiple contiguous axial images obtained through the head without contrast. Comparison: October 06, 2024. New remote lacunar infarct right mid internal capsule. No acute intracranial hemorrhage, abnormal extra-axial fluid collection, or mass effect. 4th ventricle is midline without hydrocephalus. Bush-white matter differentiation preserved. Bony calvarium intact. Visualized paranasal sinuses and mastoid air cells are clear. Impression: New remote lacunar infarct right internal capsule. Remaining CT head without contrast normal.
[2025-09-07 12:45] LABS: Amphetamine,Urine NEGATIVE (NEGATIVE); Barbiturate,Urine NEGATIVE (NEGATIVE); Benzodiazepine,Urine NEGATIVE (NEGATIVE); Cocaine,Urine NEGATIVE (NEGATIVE); Methadone,Urine NEGATIVE (NEGATIVE); Opiate,Urine NEGATIVE (NEGATIVE); PCP,Urine NEGATIVE (NEGATIVE); THC,Urine POSITIVE (NEGATIVE)
[2025-09-07 12:56] LABS: Glucose, Urine Negative (Negative); Protein,Urine Dip Negative (Negative); RBC 0-2 /HPF (0-5); WBC 0-2 /HPF (0-5)
--- NOTE | 2025-09-07 14:01 | XRAY ---
Indication: Stroke. Sagittal, coronal, and axial MRI brain performed without contrast using T1, T2, FLAIR, diffusion, and ADC sequences. Comparison: None Several images/sequences slightly degraded by motion. Ventriculosulcal pattern appears symmetric. Right internal capsule demonstrates remote lacunar infarct. Left centrum semiovale demonstrates focus restricted signal measuring at least 5.1 x 1.8 cm favoring acute ischemia. Smaller focus acute ischemia seen left basal ganglia. No acute intracranial hemorrhage, abnormal extra-axial fluid collection, or mass effect. 4th ventricle is midline without hydrocephalus. 7/8 cranial nerve complex bilaterally symmetric. Normal flow void signal within the major intracerebral circulation. Normal appearing craniocervical junction and sella turcica. Paranasal sinuses are clear. Impression: 1. Minimal motion artifact. 2. Acute ischemia left centrum semiovale and left basal ganglia as detailed. No acute hemorrhage/mass effect. 3. Incidental remote lacunar infarct right internal capsule. Comment: Telephone report given to ordering clinician Dr. Chen at 14:00 hours on September 07, 2025.
--- NOTE | 2025-09-07 14:05 | XRAY ---
Indication: Stroke. Conventional contrast-enhanced CTA neck performed using 80 cc Isovue 370 contrast. 2D sagittal and coronal reformatted images obtained. Additional 3D reformatted images obtained using separate workstation. Comparison: None Visualized aortic arch and origins great vessels are normal in CTA appearance. Left/right common carotid, carotid bulb, internal carotid, and external carotid arteries are also normal in CTA appearance. Vertebral arteries are bilaterally patent with the right larger in caliber. Visualized soft tissues demonstrates a few subcentimeter cervical and submandibular nodes bilaterally, none pathologically enlarged. Parotid and submandibular glands are bilaterally symmetric. Thyroid gland enhances homogeneously with 1 cm right mid thyroid hypodense nodule/cyst. Supra and infraglottic airway widely patent. Normal epiglottis. Visualized osseous structures/cervical spine intact. Lung apices are clear. Impression: 1. Normal CTA neck with contrast exam. 2. Incidental 1 cm right thyroid hypodense nodule/cyst. Comment: Telephone report given to ordering clinician Dr. Chen at 14:00 hours on September 07, 2025.
[2025-09-07] MEDS ORDERED: TRANDATE 20 MG/4 ML SYRINGE IV ONE (14:10)
[2025-09-07] MEDS: TRANDATE 20 MG/4 ML SYRINGE IV ONE (14:11)
--- NOTE | 2025-09-07 14:13 | XRAY ---
Indication: Stroke. Conventional contrast-enhanced CTA head performed using 80 cc Isovue 370 contrast. 2D sagittal and coronal reformatted images obtained. Additional 3D reformatted images obtained using separate workstation. Comparison: None Distal internal carotid arteries are bilaterally symmetric without critical stenosis, obstruction, or AV malformation. Normal carotid terminus with normal branching A1 and M1 segments bilaterally. Left middle cerebral artery demonstrates asymmetric attenuation of the more distal M2/M3 insular branches. Remaining left/right anterior cerebral and right middle cerebral arteries are normal in CTA appearance. Posterior circulation demonstrates normal CTA appearance to the basilar, left/right posterior cerebral, left/right superior cerebellar, and left/right anterior inferior cerebellar arteries. Venous sinuses/ drainage unremarkable. Brain parenchyma is negative for abnormal intra or extra-axial enhancement. Impression: 1. Attenuation distal left M2/M3 branches. Findings correspond to acute ischemia seen on same day MRI brain exam. 2. Remaining CTA head with contrast is negative. Comment: Telephone report given to ordering clinician Dr. Chen at 14:00 hours on September 07, 2025.
[2025-09-07] MEDS: CARDENE*** 25 MG in Sodium Chloride 0.9% 250 ML 240 ML IV PRN (15:01)
[2025-09-07 16:10] VITALS: BP 164/110; PULSE 88; RESP 20; O2SAT 96
== END 2025-09-07 16:11 | disposition short-term general hospital (02) ==
LOC: ED 11:24
DX: I63.9 Cerebral infarction, unspecified (principal); Z79.899 Other long term (current) drug therapy; Z72.0 Tobacco use
CPT/HCPCS: 36415; 70450; 70496; 70498; 70551; 80053; 80307; 81001; 84703; 85025; 87086; 93005; 93041; 94760; 96365; 96375; 99291; P9612